=== PATIENT | male | born 1985 | race Caucasian/White ===

== ENCOUNTER → 2016-07-18 | Outpatient (CLI) | payer BC ==
[~2016-07-18] MED LIST: ACET-1311 PO; CLC100X PO; MULT-506 PO; OXYC5TAB PO; PRLSR20 PO; [UNRECOGNIZED DRUG - CODE] PO; allegra PO
[2016-07-18 08:52] LABS: METHOD OF COLLECTION MASTURBATION; SEMEN TIME OF COLLECTION 750; TYPE OF SPECIMEN CONTAINER CUP
[2016-07-18 08:53] LABS: COLLECTION PROBLEM NO; DAYS OF ABSTINENCE 4; SEMEN COLOR GRAY OR GRAY-WHITE (GRY/GRYWHTE); SEMEN VOLUME 2.8 ML (>1.5); TRANSPORT PROBLEM NO
[2016-07-18 09:34] LABS: SPERM VIABILITY STAIN NOT INDICATED % (>58%)
== END | disposition home or self-care (01) ==
LOC: C.LAB 08:27
PROVIDERS: ATTEND Obstetrics & Gynecology
DX: Z31.41 Encounter for fertility testing (principal)